=== PATIENT | female | born 1995 ===

== ENCOUNTER 2018-08-16 14:11 | Emergency (ER) | payer SELFPAY ==
[2018-08-16 14:24] VITALS: BMI 17.7
[2018-08-16 14:26] VITALS: BP 122/80; PULSE 74; TEMP 98.4; O2SAT 100
--- NOTE | 2018-08-16 14:27 | C.PDOC ---
History Of Present Illness 22 year old female presents to the ED for evaluation of a rash on the back of neck and along the scalp line for 1 week. Patient reports wearing a new necklace made of an unfamiliar metal. Admits to applying mild of magnesium, with no improvement. Denies fever, nausea, vomiting, and any other associated symptoms. Time Seen by Provider: 08/16/18 14:20 Chief Complaint (Nursing): Allergic Reaction History Per: Patient History/Exam Limitations: no limitations Onset/Duration Of Symptoms: Days Current Symptoms Are (Timing): Still Present Past Medical History Reviewed: Historical Data, Nursing Documentation, Vital Signs Family History: States: Unknown Family Hx Review Of Systems Except As Marked, All Systems Reviewed And Found Negative. Constitutional: Negative for: Fever Gastrointestinal: Negative for: Nausea, Vomiting Skin: Positive for: Rash (on the back of the neck and along the scalp line. ) Physical Exam - Physical Exam Appears: Well, Non-toxic, No Acute Distress Skin: Warm, Dry, Rash ((+) confluent vesicular rash consistent constant with neck lace. (+) ), Other ((+) respected front midline neck few scattered vesicles on the anterior scalp.) Head: Atraumatic, Normacephalic Eye(s): bilateral: PERRL Oral Mucosa: Moist Neck: Normal ROM, Supple Respiratory: Normal Breath Sounds, No Accessory Muscle Use, No Rales, No Rhonchi, No Wheezing Neurological/Psych: Oriented x3, Normal Speech, Normal Cognition ED Course And Treatment O2 Sat by Pulse Oximetry: 100 (RA) Pulse Ox Interpretation: Normal Medical Decision Making Medical Decision Making: contact dermatitis of b/l neck traces area of a hanging neclace and some mild forehead ? related to a new necklace she wore 3 days ago. no improvement with Mild of Magnesia (oral laxative) applied topically. Plan: -Benadryl. Pepcid. Prednisone. Progress/Update: Patient stable for discharge home. Prescribed Deltasone. Disposition Doctor Will See Patient In The: Office Counseled Patient/Family Regarding: Studies Performed, Diagnosis - Disposition Referrals: [facility] [Outside] [facility] [Outside] [facility] [Outside] [facility] [Outside] Disposition: HOME/ ROUTINE Disposition Time: 14:27 Condition: GOOD Additional Instructions: prednisone 40 mg daily for 4 more days to complete 5 days of prednisone Pepcid 20 mg 9AM and 9PM- antihistaminic and helps prevent stomach irritation from the prednisone Benadryl 25-50 mg every 6 hours as needed for pururitis/itching Apply Calamine Lotion (NOT Milk of Magnesia) to the affected areas 2-3x/day as needed- helps with itching. discard the new necklace- probably provoking contact dermatitis. Prescriptions: Prednisone [Deltasone] 40 mg PO DAILY #8 tablet Instructions: Contact Dermatitis (DC) Forms: USDS (Turkish) - Clinical Impression Clinical Impression: Contact dermatitis - Scribe Statement The provider has reviewed the documentation as recorded by the Scribe (Janel Barajas) Provider Attestation: All medical record entries made by the Scribe were at my direction and personally dictated by me. I have reviewed the chart and agree that the record accurately reflects my personal performance of the history, physical exam, medical decision making, and the department course for this patient. I have also personally directed, reviewed, and agree with the discharge instructions and disposition.
== END 2018-08-16 15:00 | disposition home or self-care (01) ==
LOC: C.ER 14:11
DX: L25.9 Unspecified contact dermatitis, unspecified cause (principal)